=== PATIENT | female | born 1975 | race Caucasian/White ===

== ENCOUNTER 2017-12-21 22:34 | Inpatient (IN) ==
[2017-12-22] MEDS ORDERED: ACETAMINOPHEN 500 MG TABLET PO STA (00:12)
[2017-12-22] MEDS ORDERED: ACETAMINOPHEN 500 MG TABLET ONE (00:17)
[2017-12-22] MEDS ORDERED: AZITHROMYCIN INJ 500 MG in SODIUM CHLORIDE 0.9% 250 ML IV STA (00:34)
[2017-12-22] MEDS ORDERED: AZITHROMYCIN 500 MG VIAL IV ONE (00:37)
[2017-12-22] MEDS ORDERED: ALBUTEROL 2.5 MG/3 ML NEB RESP TX PRN (03:38)
[2017-12-22 03:41] LABS: ABG Base Excess -3.8 MMOL/L (-2.5-2.5); ABG HCO3 21.2 MMOL/L (20-26); ABG Oxygen Saturation 93.6 % (95-100); ABG PCO2 35.7 MM HG (35-48); ABG PH 7.376 (7.35-7.45); ABG PO2 68.4 MM HG (80-95); ABG TCO2 19.3 MMOL/L (23-27); Allen Test Positive
[2017-12-22] MEDS: SODIUM CHLORIDE 0.9% 1,000 ML IV SCH ×2 (05:38→17:13)
[2017-12-22] MEDS: cefTRIAXone 2,000 MG in SYRINGE 1 EACH IV SCH ×2 (05:39→16:36)
[2017-12-22 05:47] LABS: Eosinophils # 0.1 10*3/uL (0.0-0.87); Eosinophils % 0.7 % (0.00-10.9); Hematocrit 29.8 VOL% (35.7-47.0); Hemoglobin 10.3 GM/DL (12.0-16.0); Immature Granulocytes % 0.2 %; Immature Granulocytes Absolute 0.02 #; Lymphocytes # 1.7 10*3/uL (1.4-4.0); Lymphocytes % 20.1 % (21.3-54.2); Mean Corpuscular HGB Conc 34.6 GM/DL (32-36); Mean Corpuscular Hemoglobin 32 PG (27-34); Mean Corpuscular Volume 93.4 FL (87-102); Mean Platelet Volume 9.3 FL (9.6-12.0); Monocytes # 0.7 10*3/uL (0.11-0.8); Monocytes % 8.4 % (1.7-12.7); Neutrophils # 5.9 10*3/uL (1.4-7.4); Neutrophils % 70.6 % (38.7-73.9); Platelet Count 215 T/CUMM (130-400); Red Blood Count 3.19 MC/CUMM (3.8-5.5); Red Cell Distribution Width 13.1 % (9.3-17.3); White Blood Count 8.4 T/CUMM (4-12)
[2017-12-22] MEDS: VANCOMYCIN INJ 1,000 MG in SODIUM CHLORIDE 0.9% 250 ML IV SCH ×2 (05:50→17:12)
[2017-12-22 05:56] LABS: PT Patient Result 10.7 SECS
[2017-12-22 05:57] LABS: PT Patient Result 10.7 SECS; Partial Thromboplastin Time 35.7 SECS (0-40)
[2017-12-22] MEDS ORDERED: PNEUMOCOCCAL VACCINE (23 VALENT) 0.5 ML VIAL IM ONE (06:00)
[2017-12-22 06:20] LABS: Albumin 3.1 G/DL (3.4-5.0); Bilirubin,Total 0.7 MG/DL (0.2-1.0); Calcium 8.2 MG/DL (8.5-10.1); Osmolality,Calculated 278.3 MOS/KG (273-304); Potassium 3.3 MMOL/L (3.5-5.1); Total Protein 6.8 G/DL (6.4-8.3)
[2017-12-22] MEDS: ALBUTEROL/IPRATROPIUM 3 ML NEB RESP TX SCH ×3 (07:23→19:01)
[2017-12-22] MEDS ORDERED: SODIUM CHLORIDE 0.9% 1,000 ML IV ONE (07:35)
[2017-12-22] MEDS: POTASSIUM CHLORIDE 20 MEQ TABLET PO SCH (08:07)
[2017-12-22] MEDS: ENOXAPARIN 40 MG/0.4 ML SYRINGE SUBCUT SCH (08:08)
[2017-12-22] MEDS: PANTOPRAZOLE 40 MG TABLET PO SCH (08:08)
[2017-12-22] MEDS: methylPREDNISolone SOD SUC 125 MG/2 ML VIAL IV SCH ×2 (09:55→16:30)
[2017-12-22] MEDS: ACETAMINOPHEN 325 MG TABLET PO PRN (10:38)
[2017-12-22 15:48] LABS: Barbiturates Screen,Urine Negative (Negative); Benzodiazepines Screen,Urine Negative (Negative); Cannabinoid Screen,Urine Negative (Negative); Opiate Screen,Urine Positive (Negative); Phencyclidine Screen,Urine Negative (Negative)
[2017-12-22] MEDS ORDERED: LORazepam 1 MG TABLET PO PRN (17:41)
[2017-12-22] MEDS: GABAPENTIN 100 MG CAPSULE PO SCH (21:06)
[2017-12-23] MEDS: methylPREDNISolone SOD SUC 125 MG/2 ML VIAL IV SCH ×3 (00:08→17:30)
[2017-12-23] MEDS: ALBUTEROL/IPRATROPIUM 3 ML NEB RESP TX SCH ×4 (00:16→19:55)
[2017-12-23] MEDS: SODIUM CHLORIDE 0.9% 1,000 ML IV SCH ×2 (05:07→05:13)
[2017-12-23] MEDS: cefTRIAXone 2,000 MG in SYRINGE 1 EACH IV SCH ×2 (05:08→17:00)
[2017-12-23] MEDS: VANCOMYCIN INJ 1,000 MG in SODIUM CHLORIDE 0.9% 250 ML IV SCH ×2 (05:11→17:30)
[2017-12-23 05:18] LABS: Hematocrit 27.4 VOL% (35.7-47.0); Hemoglobin 9.4 GM/DL (12.0-16.0); Immature Granulocytes % 0.7 %; Immature Granulocytes Absolute 0.04 #; Lymphocytes # 0.6 10*3/uL (1.4-4.0); Lymphocytes % 9.2 % (21.3-54.2); Mean Corpuscular HGB Conc 34.3 GM/DL (32-36); Mean Corpuscular Hemoglobin 32 PG (27-34); Mean Corpuscular Volume 93.8 FL (87-102); Mean Platelet Volume 9.2 FL (9.6-12.0); Monocytes # 0.2 10*3/uL (0.11-0.8); Monocytes % 2.5 % (1.7-12.7); Neutrophils # 5.3 10*3/uL (1.4-7.4); Neutrophils % 87.6 % (38.7-73.9); Platelet Count 209 T/CUMM (130-400); Red Blood Count 2.92 MC/CUMM (3.8-5.5)
[2017-12-23 05:36] LABS: Calcium 8.3 MG/DL (8.5-10.1); Osmolality,Calculated 293.6 MOS/KG (273-304); Potassium 3.3 MMOL/L (3.5-5.1)
[2017-12-23] MEDS: LEVOTHYROXINE 25 MCG TABLET PO SCH (09:38)
[2017-12-23] MEDS: PANTOPRAZOLE 40 MG TABLET PO SCH (09:38)
[2017-12-23] MEDS: ENOXAPARIN 40 MG/0.4 ML SYRINGE SUBCUT SCH (09:38)
[2017-12-23] MEDS: GABAPENTIN 100 MG CAPSULE PO SCH ×3 (09:38→20:46)
[2017-12-23] MEDS: POTASSIUM CHLORIDE 20 MEQ TABLET PO SCH (09:38)
[2017-12-23] MEDS: CITALOPRAM 40 MG TABLET PO SCH (09:38)
[2017-12-23] MEDS: ONDANSETRON 4 MG/2 ML VIAL IV PRN (19:40)
[2017-12-23 20:18] LABS: ABG Base Excess -2.8 MMOL/L (-2.5-2.5); ABG HCO3 21.9 MMOL/L (20-26); ABG Oxygen Saturation 88.8 % (95-100); ABG PCO2 30.3 MM HG (35-48); ABG PO2 56.2 MM HG (80-95); ABG TCO2 18.8 MMOL/L (23-27)
[2017-12-24] MEDS: ALBUTEROL/IPRATROPIUM 3 ML NEB RESP TX SCH ×4 (00:43→19:42)
[2017-12-24] MEDS: methylPREDNISolone SOD SUC 125 MG/2 ML VIAL IV SCH ×3 (01:10→16:50)
[2017-12-24 01:23] LABS: ABG Base Excess -3.5 MMOL/L (-2.5-2.5); ABG HCO3 21.4 MMOL/L (20-26); ABG PCO2 33.6 MM HG (35-48); ABG PH 7.399 (7.35-7.45); ABG PO2 61.1 MM HG (80-95); ABG TCO2 19.4 MMOL/L (23-27); Allen Test Positive
[2017-12-24] MEDS: LORazepam 2 MG/1 ML VIAL IV PRN ×2 (01:45→06:43)
[2017-12-24 02:00] LABS: Calcium 8.1 MG/DL (8.5-10.1); Osmolality,Calculated 285.7 MOS/KG (273-304); Potassium 3.7 MMOL/L (3.5-5.1)
[2017-12-24] MEDS: VANCOMYCIN INJ 1,000 MG in SODIUM CHLORIDE 0.9% 250 ML IV SCH ×3 (02:27→21:32)
[2017-12-24] MEDS: ONDANSETRON 4 MG/2 ML VIAL IV PRN (02:46)
[2017-12-24] MEDS ORDERED: HYDROmorphone 2 MG/1 ML VIAL IV ONE (03:27)
[2017-12-24] MEDS: LEVOTHYROXINE 25 MCG TABLET PO SCH (06:13)
[2017-12-24] MEDS: cefTRIAXone 2,000 MG in SYRINGE 1 EACH IV SCH ×2 (06:13→16:51)
[2017-12-24] MEDS ORDERED: FUROSEMIDE 40 MG/4 ML VIAL IV ONE (08:18)
[2017-12-24] MEDS: CITALOPRAM 40 MG TABLET PO SCH (08:30)
[2017-12-24] MEDS: PANTOPRAZOLE 40 MG TABLET PO SCH (08:31)
[2017-12-24] MEDS: ENOXAPARIN 40 MG/0.4 ML SYRINGE SUBCUT SCH (08:31)
[2017-12-24] MEDS: GABAPENTIN 100 MG CAPSULE PO SCH ×3 (08:31→21:32)
[2017-12-24] MEDS: POTASSIUM CHLORIDE 20 MEQ TABLET PO SCH (08:31)
[2017-12-24 08:57] LABS: ABG Base Excess -2.1 MMOL/L (-2.5-2.5); ABG HCO3 22.1 MMOL/L (20-26); ABG Oxygen Saturation 83.1 % (95-100); ABG PCO2 35.9 MM HG (35-48); ABG PH 7.408 (7.35-7.45); ABG PO2 52.4 MM HG (80-95); ABG TCO2 23.2 MMOL/L (23-27)
[2017-12-24] MEDS ORDERED: SUCCINYLCHOLINE 200 MG/10 ML VIAL ONE (09:55)
[2017-12-24] MEDS ORDERED: PROPOFOL 200 MG/20 ML VIAL IV ONE (09:55)
[2017-12-24] MEDS ORDERED: VECURONIUM 10 MG VIAL IV ONE ×2 (10:30→12:31)
[2017-12-24] MEDS: PROPOFOL 1,000 MG/100 ML BOTTLE IV SCH ×4 (10:47→23:19)
[2017-12-24] MEDS: ENOXAPARIN 80 MG/0.8 ML SYRINGE SUBCUT SCH ×2 (10:58→21:32)
[2017-12-24 11:27] LABS: Pt O2 Delivery Device Ventilator
[2017-12-24 11:33] LABS: ABG Base Excess -5.1 MMOL/L (-2.5-2.5); ABG HCO3 20.2 MMOL/L (20-26); ABG Oxygen Saturation 97.9 % (95-100); ABG PCO2 49.2 MM HG (35-48); ABG PH 7.265 (7.35-7.45); ABG TCO2 19.9 MMOL/L (23-27)
[2017-12-24] MEDS: fentaNYL INJ 1,250 MCG in SODIUM CHLORIDE 0.9% 225 ML IV PRN (12:01)
[2017-12-24] MEDS: PIPERACILLIN/TAZOBACTAM 3,375 MG in SODIUM CHLORIDE 0.9% 100 ML IV SCH ×2 (14:42→21:32)
[2017-12-24 15:58] LABS: ABG Base Excess 1.2 MMOL/L (-2.5-2.5); ABG HCO3 25.5 MMOL/L (20-26); ABG Oxygen Saturation 96.8 % (95-100); ABG PCO2 39.8 MM HG (35-48); ABG PH 7.418 (7.35-7.45); ABG PO2 89.6 MM HG (80-95); ABG TCO2 23.5 MMOL/L (23-27)
[2017-12-24] MEDS: FUROSEMIDE 40 MG/4 ML VIAL IV SCH (16:50)
[2017-12-24] MEDS ORDERED: CISATRACURIUM 200 MG in SODIUM CHLORIDE 0.9% 180 ML IV SCH (17:45)
[2017-12-25] MEDS: ALBUTEROL/IPRATROPIUM 3 ML NEB RESP TX SCH ×4 (01:06→19:09)
[2017-12-25 03:28] LABS: ABG Base Excess 4.5 MMOL/L (-2.5-2.5); ABG HCO3 28.5 MMOL/L (20-26); ABG Oxygen Saturation 99.7 % (95-100); ABG PCO2 46.2 MM HG (35-48); ABG PH 7.417 (7.35-7.45); ABG TCO2 26.9 MMOL/L (23-27)
[2017-12-25 04:10] LABS: Basophils % 0.1 % (0.0-0.8); Hematocrit 26.7 VOL% (35.7-47.0); Hemoglobin 9.7 GM/DL (12.0-16.0); Immature Granulocytes % 1.1 %; Lymphocytes # 0.7 10*3/uL (1.4-4.0); Lymphocytes % 7.3 % (21.3-54.2); Mean Corpuscular HGB Conc 36.3 GM/DL (32-36); Mean Corpuscular Hemoglobin 33 PG (27-34); Mean Corpuscular Volume 91.1 FL (87-102); Mean Platelet Volume 8.8 FL (9.6-12.0); Monocytes # 0.3 10*3/uL (0.11-0.8); Monocytes % 3.4 % (1.7-12.7); Neutrophils % 88.1 % (38.7-73.9); Platelet Count 280 T/CUMM (130-400); Red Blood Count 2.93 MC/CUMM (3.8-5.5)
[2017-12-25 04:31] LABS: Osmolality,Calculated 278.5 MOS/KG (273-304); Potassium 3.4 MMOL/L (3.5-5.1)
[2017-12-25] MEDS: PIPERACILLIN/TAZOBACTAM 3,375 MG in SODIUM CHLORIDE 0.9% 100 ML IV SCH ×3 (05:41→20:22)
[2017-12-25] MEDS: cefTRIAXone 2,000 MG in SYRINGE 1 EACH IV SCH ×2 (05:42→17:04)
[2017-12-25] MEDS: VANCOMYCIN INJ 1,000 MG in SODIUM CHLORIDE 0.9% 250 ML IV SCH ×3 (05:43→20:30)
[2017-12-25] MEDS: fentaNYL INJ 1,250 MCG in SODIUM CHLORIDE 0.9% 225 ML IV PRN ×3 (05:50→23:44)
[2017-12-25] MEDS: LEVOTHYROXINE 25 MCG TABLET PO SCH (06:04)
[2017-12-25] MEDS: PROPOFOL 1,000 MG/100 ML BOTTLE IV SCH ×4 (06:49→23:41)
[2017-12-25] MEDS: LORazepam 2 MG/1 ML VIAL IV PRN ×4 (08:00→22:40)
[2017-12-25] MEDS: PANTOPRAZOLE 40 MG TABLET PO SCH (08:01)
[2017-12-25] MEDS: POTASSIUM CHLORIDE 20 MEQ TABLET PO SCH (08:01)
[2017-12-25] MEDS: CITALOPRAM 40 MG TABLET PO SCH (08:01)
[2017-12-25] MEDS: GABAPENTIN 100 MG CAPSULE PO SCH ×3 (08:01→20:13)
[2017-12-25] MEDS: FUROSEMIDE 40 MG/4 ML VIAL IV SCH (08:02)
[2017-12-25] MEDS: methylPREDNISolone SOD SUC 125 MG/2 ML VIAL IV SCH ×3 (08:07→16:00)
[2017-12-25] MEDS: HALOPERIDOL 5 MG/ML AMP IV SCH ×2 (08:15→20:14)
[2017-12-25 08:39] LABS: ABG Base Excess 5.8 MMOL/L (-2.5-2.5); ABG HCO3 29.7 MMOL/L (20-26); ABG PCO2 40.9 MM HG (35-48); ABG PH 7.472 (7.35-7.45); ABG TCO2 27.2 MMOL/L (23-27); Allen Test Positive; Pt O2 Delivery Device Ventilator
[2017-12-25] MEDS: ENOXAPARIN 80 MG/0.8 ML SYRINGE SUBCUT SCH ×2 (09:20→21:08)
[2017-12-26] MEDS: ALBUTEROL/IPRATROPIUM 3 ML NEB RESP TX SCH ×4 (01:08→20:38)
[2017-12-26] MEDS: methylPREDNISolone SOD SUC 125 MG/2 ML VIAL IV SCH ×3 (02:04→16:15)
[2017-12-26] MEDS: LORazepam 2 MG/1 ML VIAL IV PRN ×5 (03:49→21:26)
[2017-12-26 04:16] LABS: ABG Base Excess 5.7 MMOL/L (-2.5-2.5); ABG HCO3 29.3 MMOL/L (20-26); ABG Oxygen Saturation 92.3 % (95-100); ABG PCO2 38.8 MM HG (35-48); ABG PH 7.496 (7.35-7.45); ABG PO2 66.9 MM HG (80-95); ABG TCO2 30.5 MMOL/L (23-27); Allen Test Positive; Pt O2 Delivery Device Ventilator
[2017-12-26] MEDS: PROPOFOL 1,000 MG/100 ML BOTTLE IV SCH ×6 (04:21→22:07)
[2017-12-26] MEDS: PIPERACILLIN/TAZOBACTAM 3,375 MG in SODIUM CHLORIDE 0.9% 100 ML IV SCH ×3 (04:34→20:56)
[2017-12-26 05:42] LABS: Hematocrit 27.9 VOL% (35.7-47.0); Hemoglobin 9.5 GM/DL (12.0-16.0); Immature Granulocytes % 1.1 %; Immature Granulocytes Absolute 0.11 #; Lymphocytes # 0.7 10*3/uL (1.4-4.0); Lymphocytes % 7.4 % (21.3-54.2); Mean Corpuscular HGB Conc 34.1 GM/DL (32-36); Mean Corpuscular Hemoglobin 32 PG (27-34); Mean Corpuscular Volume 94.3 FL (87-102); Monocytes # 0.3 10*3/uL (0.11-0.8); Monocytes % 2.9 % (1.7-12.7); Neutrophils # 8.8 10*3/uL (1.4-7.4); Neutrophils % 88.6 % (38.7-73.9); Platelet Count 330 T/CUMM (130-400); Red Blood Count 2.96 MC/CUMM (3.8-5.5); Red Cell Distribution Width 12.9 % (9.3-17.3)
[2017-12-26] MEDS: LEVOTHYROXINE 25 MCG TABLET PO SCH (06:18)
[2017-12-26] MEDS: cefTRIAXone 2,000 MG in SYRINGE 1 EACH IV SCH ×2 (06:18→17:00)
[2017-12-26] MEDS: VANCOMYCIN INJ 1,000 MG in SODIUM CHLORIDE 0.9% 250 ML IV SCH ×3 (06:18→20:56)
[2017-12-26 06:28] LABS: Osmolality,Calculated 288.3 MOS/KG (273-304); Potassium 3.7 MMOL/L (3.5-5.1)
[2017-12-26 06:31] LABS: Prealbumin 11.8 MG/DL (20-40)
[2017-12-26 08:17] LABS: ABG Base Excess 3.1 MMOL/L (-2.5-2.5); ABG HCO3 27.1 MMOL/L (20-26); ABG Oxygen Saturation 92.7 % (95-100); ABG PCO2 45.9 MM HG (35-48); ABG PH 7.399 (7.35-7.45); ABG PO2 71.7 MM HG (80-95); ABG TCO2 25.7 MMOL/L (23-27); Allen Test Positive; Pt O2 Delivery Device Ventilator
[2017-12-26] MEDS: HALOPERIDOL 5 MG/ML AMP IV SCH ×2 (08:49→20:45)
[2017-12-26] MEDS: PANTOPRAZOLE 40 MG TABLET PO SCH (08:52)
[2017-12-26] MEDS: POTASSIUM CHLORIDE 20 MEQ TABLET PO SCH (08:52)
[2017-12-26] MEDS: GABAPENTIN 100 MG CAPSULE PO SCH ×3 (08:53→20:56)
[2017-12-26] MEDS: CITALOPRAM 40 MG TABLET PO SCH (08:53)
[2017-12-26] MEDS: ENOXAPARIN 80 MG/0.8 ML SYRINGE SUBCUT SCH ×2 (09:00→21:00)
[2017-12-26] MEDS: fentaNYL INJ 1,250 MCG in SODIUM CHLORIDE 0.9% 225 ML IV PRN ×2 (10:01→18:06)
[2017-12-27] MEDS: ALBUTEROL/IPRATROPIUM 3 ML NEB RESP TX SCH ×4 (01:12→20:00)
[2017-12-27] MEDS: fentaNYL INJ 1,250 MCG in SODIUM CHLORIDE 0.9% 225 ML IV PRN ×3 (01:26→17:36)
[2017-12-27] MEDS: methylPREDNISolone SOD SUC 125 MG/2 ML VIAL IV SCH ×3 (01:42→17:08)
[2017-12-27] MEDS: PROPOFOL 1,000 MG/100 ML BOTTLE IV SCH ×6 (02:09→20:38)
[2017-12-27] MEDS: MORPHINE 4 MG/1 ML VIAL IV PRN ×4 (02:10→21:25)
[2017-12-27 03:25] LABS: Basophils % 0.1 % (0.0-0.8); Eosinophils % 0.1 % (0.00-10.9); Hematocrit 31.6 VOL% (35.7-47.0); Hemoglobin 10.8 GM/DL (12.0-16.0); Immature Granulocytes % 1.4 %; Immature Granulocytes Absolute 0.14 #; Lymphocytes # 1.6 10*3/uL (1.4-4.0); Lymphocytes % 16.6 % (21.3-54.2); Mean Corpuscular HGB Conc 34.2 GM/DL (32-36); Mean Corpuscular Hemoglobin 32 PG (27-34); Mean Platelet Volume 8.9 FL (9.6-12.0); Monocytes # 0.4 10*3/uL (0.11-0.8); Monocytes % 3.7 % (1.7-12.7); NRBC # 0.02 10*3/uL; Neutrophils # 7.7 10*3/uL (1.4-7.4); Neutrophils % 78.1 % (38.7-73.9); Platelet Count 389 T/CUMM (130-400); Red Blood Count 3.36 MC/CUMM (3.8-5.5); Red Cell Distribution Width 12.9 % (9.3-17.3); White Blood Count 9.8 T/CUMM (4-12)
[2017-12-27 04:16] LABS: Calcium 7.6 MG/DL (8.5-10.1); Osmolality,Calculated 286.3 MOS/KG (273-304); Potassium 4.1 MMOL/L (3.5-5.1)
[2017-12-27 04:55] LABS: Allen Test Positive; Pt O2 Delivery Device Ventilator
[2017-12-27 04:56] LABS: ABG Base Excess 3.7 MMOL/L (-2.5-2.5); ABG HCO3 27.5 MMOL/L (20-26); ABG Oxygen Saturation 94.9 % (95-100); ABG PCO2 38.5 MM HG (35-48); ABG PH 7.472 (7.35-7.45); ABG PO2 77.8 MM HG (80-95); ABG TCO2 28.7 MMOL/L (23-27)
[2017-12-27] MEDS: PIPERACILLIN/TAZOBACTAM 3,375 MG in SODIUM CHLORIDE 0.9% 100 ML IV SCH ×3 (06:36→20:31)
[2017-12-27] MEDS: cefTRIAXone 2,000 MG in SYRINGE 1 EACH IV SCH ×2 (06:37→17:07)
[2017-12-27] MEDS: VANCOMYCIN INJ 1,000 MG in SODIUM CHLORIDE 0.9% 250 ML IV SCH ×3 (06:38→22:00)
[2017-12-27] MEDS: LEVOTHYROXINE 25 MCG TABLET PO SCH (06:41)
[2017-12-27] MEDS: HALOPERIDOL 5 MG/ML AMP IV SCH ×4 (08:13→20:32)
[2017-12-27] MEDS: PANTOPRAZOLE 40 MG TABLET PO SCH (08:22)
[2017-12-27] MEDS: POTASSIUM CHLORIDE 20 MEQ TABLET PO SCH (08:22)
[2017-12-27] MEDS: GABAPENTIN 100 MG CAPSULE PO SCH ×3 (08:22→20:32)
[2017-12-27] MEDS: CITALOPRAM 40 MG TABLET PO SCH (08:22)
[2017-12-27] MEDS: ENOXAPARIN 80 MG/0.8 ML SYRINGE SUBCUT SCH ×2 (09:02→21:06)
[2017-12-27] MEDS: LORazepam 2 MG/1 ML VIAL IV PRN ×2 (12:55→16:24)
[2017-12-27] MEDS ORDERED: VANCOMYCIN INJ 500 MG in SODIUM CHLORIDE 0.9% 100 ML IV ONE (16:00)
[2017-12-28] MEDS: LORazepam 2 MG/1 ML VIAL IV PRN ×5 (00:17→20:16)
[2017-12-28] MEDS: fentaNYL INJ 1,250 MCG in SODIUM CHLORIDE 0.9% 225 ML IV PRN ×3 (00:18→15:16)
[2017-12-28] MEDS: methylPREDNISolone SOD SUC 125 MG/2 ML VIAL IV SCH ×3 (00:26→17:03)
[2017-12-28] MEDS: PROPOFOL 1,000 MG/100 ML BOTTLE IV SCH ×7 (00:28→21:21)
[2017-12-28] MEDS: ALBUTEROL/IPRATROPIUM 3 ML NEB RESP TX SCH ×4 (00:46→19:47)
[2017-12-28] MEDS: HALOPERIDOL 5 MG/ML AMP IV SCH ×4 (02:53→20:18)
[2017-12-28] MEDS: MORPHINE 4 MG/1 ML VIAL IV PRN ×3 (03:20→22:30)
[2017-12-28 03:59] LABS: ABG Base Excess 2.8 MMOL/L (-2.5-2.5); ABG HCO3 26.9 MMOL/L (20-26); ABG Oxygen Saturation 97.4 % (95-100); ABG PCO2 41.3 MM HG (35-48); ABG PH 7.429 (7.35-7.45); ABG PO2 95.6 MM HG (80-95); ABG TCO2 24.7 MMOL/L (23-27)
[2017-12-28] MEDS: PIPERACILLIN/TAZOBACTAM 3,375 MG in SODIUM CHLORIDE 0.9% 100 ML IV SCH ×3 (04:21→20:20)
[2017-12-28] MEDS: cefTRIAXone 2,000 MG in SYRINGE 1 EACH IV SCH ×2 (04:31→17:03)
[2017-12-28 04:45] LABS: Basophils % 0.1 % (0.0-0.8); Hematocrit 29.7 VOL% (35.7-47.0); Hemoglobin 10.1 GM/DL (12.0-16.0); Immature Granulocytes % 1.8 %; Immature Granulocytes Absolute 0.15 #; Lymphocytes # 0.9 10*3/uL (1.4-4.0); Mean Corpuscular Hemoglobin 32 PG (27-34); Mean Corpuscular Volume 95.2 FL (87-102); Mean Platelet Volume 8.6 FL (9.6-12.0); Monocytes # 0.3 10*3/uL (0.11-0.8); Monocytes % 3.5 % (1.7-12.7); Neutrophils # 7.2 10*3/uL (1.4-7.4); Neutrophils % 83.6 % (38.7-73.9); Platelet Count 381 T/CUMM (130-400); Red Blood Count 3.12 MC/CUMM (3.8-5.5); Red Cell Distribution Width 12.7 % (9.3-17.3); White Blood Count 8.6 T/CUMM (4-12)
[2017-12-28 05:57] LABS: Osmolality,Calculated 281.4 MOS/KG (273-304); Potassium 4.1 MMOL/L (3.5-5.1)
[2017-12-28] MEDS: LEVOTHYROXINE 25 MCG TABLET PO SCH (06:24)
[2017-12-28] MEDS: VANCOMYCIN INJ 1,000 MG in SODIUM CHLORIDE 0.9% 250 ML IV SCH ×2 (06:32→14:52)
[2017-12-28] MEDS: CITALOPRAM 40 MG TABLET PO SCH (08:24)
[2017-12-28] MEDS: POTASSIUM CHLORIDE 20 MEQ TABLET PO SCH (08:24)
[2017-12-28] MEDS: GABAPENTIN 100 MG CAPSULE PO SCH ×3 (08:24→20:20)
[2017-12-28] MEDS: PANTOPRAZOLE 40 MG TABLET PO SCH (08:25)
[2017-12-28] MEDS: ENOXAPARIN 80 MG/0.8 ML SYRINGE SUBCUT SCH ×2 (09:58→21:21)
[2017-12-28] MEDS: VANCOMYCIN INJ 1,250 MG in SODIUM CHLORIDE 0.9% 250 ML IV SCH (20:30)
[2017-12-29] MEDS: ALBUTEROL/IPRATROPIUM 3 ML NEB RESP TX SCH ×4 (00:41→19:58)
[2017-12-29] MEDS: PROPOFOL 1,000 MG/100 ML BOTTLE IV SCH ×8 (00:44→22:27)
[2017-12-29] MEDS: fentaNYL INJ 1,250 MCG in SODIUM CHLORIDE 0.9% 225 ML IV PRN ×3 (00:54→20:24)
[2017-12-29] MEDS: methylPREDNISolone SOD SUC 125 MG/2 ML VIAL IV SCH (00:56)
[2017-12-29] MEDS: HALOPERIDOL 5 MG/ML AMP IV SCH ×4 (03:10→20:10)
[2017-12-29] MEDS: LORazepam 2 MG/1 ML VIAL IV PRN ×4 (03:13→19:25)
[2017-12-29 04:00] LABS: ABG Base Excess 3.7 MMOL/L (-2.5-2.5); ABG Oxygen Saturation 97.8 % (95-100); ABG PCO2 41.3 MM HG (35-48); ABG PH 7.449 (7.35-7.45); ABG PO2 111.5 MM HG (80-95); ABG TCO2 29.3 MMOL/L (23-27)
[2017-12-29] MEDS: PIPERACILLIN/TAZOBACTAM 3,375 MG in SODIUM CHLORIDE 0.9% 100 ML IV SCH ×3 (04:07→20:27)
[2017-12-29] MEDS: cefTRIAXone 2,000 MG in SYRINGE 1 EACH IV SCH ×2 (04:32→16:44)
[2017-12-29] MEDS: VANCOMYCIN INJ 1,250 MG in SODIUM CHLORIDE 0.9% 250 ML IV SCH ×3 (04:33→20:15)
[2017-12-29 05:15] LABS: Basophils % 0.1 % (0.0-0.8); Eosinophils % 0.1 % (0.00-10.9); Hematocrit 27.9 VOL% (35.7-47.0); Hemoglobin 9.6 GM/DL (12.0-16.0); Immature Granulocytes % 1.9 %; Lymphocytes # 0.9 10*3/uL (1.4-4.0); Lymphocytes % 8.7 % (21.3-54.2); Mean Corpuscular HGB Conc 34.4 GM/DL (32-36); Mean Corpuscular Hemoglobin 32 PG (27-34); Mean Corpuscular Volume 93.6 FL (87-102); Mean Platelet Volume 8.7 FL (9.6-12.0); Monocytes # 0.4 10*3/uL (0.11-0.8); Monocytes % 3.9 % (1.7-12.7); Neutrophils % 85.3 % (38.7-73.9); Platelet Count 381 T/CUMM (130-400); Red Blood Count 2.98 MC/CUMM (3.8-5.5); Red Cell Distribution Width 12.8 % (9.3-17.3); White Blood Count 10.5 T/CUMM (4-12)
[2017-12-29 05:45] LABS: Osmolality,Calculated 284.3 MOS/KG (273-304)
[2017-12-29] MEDS: LEVOTHYROXINE 25 MCG TABLET PO SCH (06:13)
[2017-12-29] MEDS: methylPREDNISolone SOD SUC 40 MG/1 ML VIAL IV SCH ×2 (08:34→20:13)
[2017-12-29] MEDS: PANTOPRAZOLE 40 MG TABLET PO SCH (08:35)
[2017-12-29] MEDS: QUEtiapine 25 MG TABLET PO SCH ×2 (08:35→20:11)
[2017-12-29] MEDS: GABAPENTIN 100 MG CAPSULE PO SCH ×3 (08:35→20:10)
[2017-12-29] MEDS: POTASSIUM CHLORIDE 20 MEQ TABLET PO SCH (08:35)
[2017-12-29] MEDS: CITALOPRAM 40 MG TABLET PO SCH (08:35)
[2017-12-29] MEDS: ENOXAPARIN 80 MG/0.8 ML SYRINGE SUBCUT SCH ×2 (09:10→21:33)
[2017-12-30] MEDS: LORazepam 2 MG/1 ML VIAL IV PRN ×4 (00:52→22:06)
[2017-12-30] MEDS: PROPOFOL 1,000 MG/100 ML BOTTLE IV SCH ×3 (01:30→11:39)
[2017-12-30] MEDS: ALBUTEROL/IPRATROPIUM 3 ML NEB RESP TX SCH ×4 (01:35→19:35)
[2017-12-30] MEDS: fentaNYL INJ 1,250 MCG in SODIUM CHLORIDE 0.9% 225 ML IV PRN (01:59)
[2017-12-30] MEDS: HALOPERIDOL 5 MG/ML AMP IV SCH ×4 (02:00→21:03)
[2017-12-30 04:14] LABS: ABG Base Excess 5.8 MMOL/L (-2.5-2.5); ABG HCO3 30.2 MMOL/L (20-26); ABG PCO2 43.7 MM HG (35-48); ABG PH 7.458 (7.35-7.45); ABG PO2 121.7 MM HG (80-95); ABG TCO2 31.6 MMOL/L (23-27)
[2017-12-30 05:06] LABS: Basophils % 0.1 % (0.0-0.8); Eosinophils # 0.1 10*3/uL (0.0-0.87); Eosinophils % 0.5 % (0.00-10.9); Hemoglobin 10.3 GM/DL (12.0-16.0); Immature Granulocytes % 1.4 %; Immature Granulocytes Absolute 0.14 #; Lymphocytes # 1.8 10*3/uL (1.4-4.0); Lymphocytes % 18.4 % (21.3-54.2); Mean Corpuscular HGB Conc 34.3 GM/DL (32-36); Mean Corpuscular Hemoglobin 33 PG (27-34); Mean Corpuscular Volume 94.9 FL (87-102); Mean Platelet Volume 8.7 FL (9.6-12.0); Monocytes # 0.7 10*3/uL (0.11-0.8); Monocytes % 6.6 % (1.7-12.7); Neutrophils # 7.3 10*3/uL (1.4-7.4); Platelet Count 368 T/CUMM (130-400); Red Blood Count 3.16 MC/CUMM (3.8-5.5); Red Cell Distribution Width 12.7 % (9.3-17.3); White Blood Count 9.9 T/CUMM (4-12)
[2017-12-30] MEDS: cefTRIAXone 2,000 MG in SYRINGE 1 EACH IV SCH ×2 (05:20→19:10)
[2017-12-30] MEDS: VANCOMYCIN INJ 1,250 MG in SODIUM CHLORIDE 0.9% 250 ML IV SCH ×3 (05:21→21:03)
[2017-12-30] MEDS: PIPERACILLIN/TAZOBACTAM 3,375 MG in SODIUM CHLORIDE 0.9% 100 ML IV SCH ×3 (05:23→21:03)
[2017-12-30 05:51] LABS: Calcium 7.4 MG/DL (8.5-10.1); Osmolality,Calculated 284.1 MOS/KG (273-304); Potassium 3.8 MMOL/L (3.5-5.1)
[2017-12-30] MEDS: LEVOTHYROXINE 25 MCG TABLET PO SCH (06:00)
[2017-12-30] MEDS: CITALOPRAM 40 MG TABLET PO SCH (08:41)
[2017-12-30] MEDS: methylPREDNISolone SOD SUC 40 MG/1 ML VIAL IV SCH ×2 (08:41→21:03)
[2017-12-30] MEDS: POTASSIUM CHLORIDE 20 MEQ TABLET PO SCH (08:41)
[2017-12-30] MEDS: GABAPENTIN 100 MG CAPSULE PO SCH ×3 (08:41→21:03)
[2017-12-30] MEDS: QUEtiapine 25 MG TABLET PO SCH ×2 (08:42→21:03)
[2017-12-30] MEDS: PANTOPRAZOLE 40 MG TABLET PO SCH (08:42)
[2017-12-30 10:19] LABS: ABG Base Excess 4.5 MMOL/L (-2.5-2.5); ABG HCO3 28.5 MMOL/L (20-26); ABG PCO2 44.2 MM HG (35-48); ABG PH 7.431 (7.35-7.45); ABG PO2 81.4 MM HG (80-95); ABG TCO2 26.5 MMOL/L (23-27)
[2017-12-30] MEDS: ENOXAPARIN 80 MG/0.8 ML SYRINGE SUBCUT SCH ×2 (12:33→21:14)
[2017-12-31] MEDS: MORPHINE 4 MG/1 ML VIAL IV PRN (01:36)
[2017-12-31] MEDS: ALBUTEROL/IPRATROPIUM 3 ML NEB RESP TX SCH ×6 (01:36→23:45)
[2017-12-31] MEDS: HALOPERIDOL 5 MG/ML AMP IV SCH (02:54)
[2017-12-31] MEDS: VANCOMYCIN INJ 1,250 MG in SODIUM CHLORIDE 0.9% 250 ML IV SCH ×3 (04:35→20:22)
[2017-12-31] MEDS: PIPERACILLIN/TAZOBACTAM 3,375 MG in SODIUM CHLORIDE 0.9% 100 ML IV SCH ×3 (04:35→22:34)
[2017-12-31] MEDS: cefTRIAXone 2,000 MG in SYRINGE 1 EACH IV SCH ×2 (06:25→20:11)
[2017-12-31] MEDS: LEVOTHYROXINE 25 MCG TABLET PO SCH (06:29)
[2017-12-31] MEDS: CITALOPRAM 40 MG TABLET PO SCH (08:55)
[2017-12-31] MEDS: POTASSIUM CHLORIDE 20 MEQ TABLET PO SCH (08:56)
[2017-12-31] MEDS: PANTOPRAZOLE 40 MG TABLET PO SCH (08:56)
[2017-12-31] MEDS: GABAPENTIN 100 MG CAPSULE PO SCH ×3 (08:56→20:24)
[2017-12-31] MEDS: ENOXAPARIN 80 MG/0.8 ML SYRINGE SUBCUT SCH ×2 (09:06→20:24)
[2017-12-31] MEDS: PROPOFOL 1,000 MG/100 ML BOTTLE IV SCH (12:39)
[2017-12-31] MEDS: ACETAMINOPHEN 325 MG TABLET PO PRN (16:50)
[2017-12-31] MEDS: DIPHENOXYLATE/ATROPINE 2.5-0.025 MG TABLET PO PRN (17:25)
[2017-12-31] MEDS ORDERED: LORazepam 2 MG/1 ML VIAL IV ONE ×2 (17:47→23:00)
[2017-12-31] MEDS ORDERED: methylPREDNISolone SOD SUC 40 MG/1 ML VIAL IV SCH (21:00)
[2017-12-31] MEDS ORDERED: QUEtiapine 25 MG TABLET PO SCH (21:00)
[2018-01-01] MEDS ORDERED: HALOPERIDOL 5 MG/ML AMP IV ONE (00:30)
[2018-01-01] MEDS: VANCOMYCIN INJ 1,250 MG in SODIUM CHLORIDE 0.9% 250 ML IV SCH (05:04)
[2018-01-01] MEDS: DIPHENOXYLATE/ATROPINE 2.5-0.025 MG TABLET PO PRN (05:09)
[2018-01-01 06:08] LABS: Eosinophils % 0.4 % (0.00-10.9); Hematocrit 30.4 VOL% (35.7-47.0); Hemoglobin 10.5 GM/DL (12.0-16.0); Immature Granulocytes % 0.9 %; Immature Granulocytes Absolute 0.06 #; Lymphocytes # 1.1 10*3/uL (1.4-4.0); Lymphocytes % 16.9 % (21.3-54.2); Mean Corpuscular HGB Conc 34.5 GM/DL (32-36); Mean Corpuscular Hemoglobin 32 PG (27-34); Mean Corpuscular Volume 93.3 FL (87-102); Mean Platelet Volume 8.7 FL (9.6-12.0); Monocytes # 0.6 10*3/uL (0.11-0.8); Monocytes % 8.4 % (1.7-12.7); Neutrophils # 4.9 10*3/uL (1.4-7.4); Neutrophils % 73.4 % (38.7-73.9); Platelet Count 391 T/CUMM (130-400); Red Blood Count 3.26 MC/CUMM (3.8-5.5); Red Cell Distribution Width 12.8 % (9.3-17.3); White Blood Count 6.7 T/CUMM (4-12)
[2018-01-01 06:37] LABS: Calcium 8.5 MG/DL (8.5-10.1); Osmolality,Calculated 279.3 MOS/KG (273-304); Potassium 3.6 MMOL/L (3.5-5.1)
[2018-01-01] MEDS: LEVOTHYROXINE 25 MCG TABLET PO SCH (07:13)
[2018-01-01] MEDS: PIPERACILLIN/TAZOBACTAM 3,375 MG in SODIUM CHLORIDE 0.9% 100 ML IV SCH (07:13)
[2018-01-01] MEDS: ALBUTEROL/IPRATROPIUM 3 ML NEB RESP TX SCH ×2 (07:29→13:53)
[2018-01-01] MEDS ORDERED: LORazepam 2 MG/1 ML VIAL IM PRN (07:56)
[2018-01-01] MEDS ORDERED: LORazepam 2 MG/1 ML VIAL IV PRN (07:59)
[2018-01-01] MEDS: CITALOPRAM 40 MG TABLET PO SCH (10:34)
[2018-01-01] MEDS: PANTOPRAZOLE 40 MG TABLET PO SCH (10:35)
[2018-01-01] MEDS: POTASSIUM CHLORIDE 20 MEQ TABLET PO SCH (10:35)
[2018-01-01] MEDS: GABAPENTIN 100 MG CAPSULE PO SCH (10:35)
[2018-01-01] MEDS: ENOXAPARIN 80 MG/0.8 ML SYRINGE SUBCUT SCH (10:38)
[2018-01-01 11:24] VITALS: BP 124/83
== END 2018-01-01 14:10 | disposition left against medical advice (07) | DRG 870 ==
LOC: EDBD → EDUNIT# → N.ED 22:34 → N.EDINP 12-22 02:14 → SUATTDRO 12-22 02:14 → N.CC 12-22 05:16 → N.2E 12-22 17:10 → N.CC 12-24 01:21 → N.2E 12-31 13:27
PROVIDERS: ADMIT Family Medicine; ATTEND Hospitalist